=== PATIENT | female | born 2000 | race Caucasian/White ===

== ENCOUNTER 2021-11-05 15:25 | Inpatient (IN) | payer BC ==
[2021-11-05 17:11] LABS: BLOOD UREA NITROGEN,BUN 6 mg/dL (7.0-18.0); CARBON DIOXIDE,CO2 21.2 mmol/L (21.0-32.0); CHLORIDE,CL 104 mmol/L (98-107); GLUCOSE RANDOM 84 mg/dL (74-106); POTASSIUM,K 3.2 mmol/L (3.5-5.1); SODIUM,NA 139 mmol/L (136-145)
[2021-11-05] MEDS ORDERED: Butorphanol 1 MG/ML SDV IVPUSH PRN (17:34)
[2021-11-05] MEDS ORDERED: Ondansetron 4 MG/2 ML SDV IVPUSH PRN (17:34)
[2021-11-05] MEDS ORDERED: Sodium Chloride 0.9% 2.5 ML Syringe FLUSH PRN (17:34)
[2021-11-05] MEDS ORDERED: Tranexamic Acid 1,000 MG in Sodium Chloride 0.9% 100 ML IV PRN (17:34)
[2021-11-05] MEDS ORDERED: Methylergonovine 0.2 MG/1 ML Amp IM PRN (17:34)
[2021-11-05] MEDS ORDERED: Sodium Chloride 0.9% 10 ML Syringe FLUSH PRN (17:34)
[2021-11-05] MEDS ORDERED: Carboprost Tromethamine 250 MCG/1 ML Amp IM PRN (17:34)
[2021-11-05] MEDS ORDERED: Water For Irrigation,Sterile 1,000 ML Container IRR PRN (17:34)
[2021-11-05] MEDS ORDERED: Lidocaine 1% 50 ML MDV INJECT PRN (17:34)
[2021-11-05] MEDS ORDERED: Sodium Chloride 0.9% 20 ML SDV IV PRN (17:34)
[2021-11-05] MEDS ORDERED: Misoprostol 200 MCG Tab PO PRN (17:34)
[2021-11-05] MEDS ORDERED: Acetaminophen 500 MG Tab PO ONE (17:42)
[2021-11-05] MEDS ORDERED: Terbutaline 1 MG/ML SDV SUBCUT PRN (17:42)
[2021-11-05] MEDS ORDERED: Oxytocin/0.9 % Sodium Chloride 30 UNIT/500 ML BAG IV SCH (17:45)
[2021-11-05] MEDS ORDERED: Labetalol 100 MG/20 ML MDV IVPUSH PRN (18:05)
[2021-11-05] MEDS: Lactated Ringers 1,000 ML IV SCH (18:05)
[2021-11-05] MEDS ORDERED: ePHEDrine 50 MG/ML SDV IVPUSH PRN ×2 (18:32)
[2021-11-06] MEDS: Lactated Ringers 1,000 ML IV SCH ×3 (10:14→18:07)
[2021-11-06] MEDS ORDERED: Ropivacaine 100 ML ONE (10:31)
[2021-11-06] MEDS: Ropivacaine 200 MG in Premix Bag 1 BAG EPIDUR SCH ×2 (16:53→23:14)
[2021-11-07] MEDS: Oxytocin/0.9 % Sodium Chloride 30 UNIT/500 ML BAG IV SCH ×2 (00:30→01:16)
[2021-11-07] MEDS ORDERED: Docusate Sodium 100 MG Cap PO PRN (00:43)
[2021-11-07] MEDS ORDERED: Acetaminophen 500 MG Tab PO PRN (00:43)
[2021-11-07] MEDS ORDERED: Lanolin 100% Cream 7 GM Tube TOP PRN (00:43)
[2021-11-07] MEDS ORDERED: Tranexamic Acid 1,000 MG in Sodium Chloride 0.9% 100 ML IV PRN (00:43)
[2021-11-07] MEDS ORDERED: Ibuprofen 400 MG Tab PO PRN (00:43)
[2021-11-07] MEDS ORDERED: Bisacodyl 10 MG Supp RECTAL PRN (00:43)
[2021-11-07] MEDS ORDERED: Oxytocin/0.9 % Sodium Chloride 30 UNIT/500 ML BAG ONE (01:09)
[2021-11-07] MEDS: Benzocaine/Menthol 20%-0.5% Spray 78 GM Cannister TOP PRN ×2 (01:19→15:46)
[2021-11-07] MEDS: Witch Hazel Medicated Pads 40/Jar TOP PRN ×2 (01:20→15:46)
[2021-11-07] MEDS: Ibuprofen 800 MG Tab PO PRN (01:21)
[2021-11-07] MEDS: Prenatal Multivitamin with Calcium/Folic Acid/Iron Tab PO SCH (09:56)
[2021-11-07] MEDS: Acetaminophen 500 MG Tab PO PRN (17:47)
[2021-11-08] MEDS: Ibuprofen 800 MG Tab PO PRN (02:14)
[2021-11-08] MEDS: Prenatal Multivitamin with Calcium/Folic Acid/Iron Tab PO SCH (08:19)
[2021-11-08] MEDS: Acetaminophen 500 MG Tab PO PRN (08:19)
== END 2021-11-08 11:40 | disposition home or self-care (01) | DRG 560 ==
LOC: MW.OBCHECK 15:25 → MW.OB 15:36 → MW.OBCHECK 17:34 → MW.OB 17:34 → OBSVTOIN 11-07 00:20 → MW.OB 11-07 06:25
PROVIDERS: ADMIT Obstetrics & Gynecology; ATTEND Obstetrics & Gynecology
PROC: 10E0XZZ Delivery of Products of Conception, External Approach (ICD-10-PCS; principal; 2021-11-07)
PROC: 3E0P7VZ Introduction of Hormone into Female Reproductive, Via Natural or Artificial Opening (ICD-10-PCS; 2021-11-07)
PROC: 3E033VJ Introduction of Other Hormone into Peripheral Vein, Percutaneous Approach (ICD-10-PCS; 2021-11-07)
PROC: 0KQM0ZZ Repair Perineum Muscle, Open Approach (ICD-10-PCS; 2021-11-07)
PROC: 3E0R3BZ Introduction of Anesthetic Agent into Spinal Canal, Percutaneous Approach (ICD-10-PCS; 2021-11-07)
PROC: 00HU33Z Insertion of Infusion Device into Spinal Canal, Percutaneous Approach (ICD-10-PCS; 2021-11-07)
PROC: 10907ZC Drainage of Amniotic Fluid, Therapeutic from Products of Conception, Via Natural or Artificial Opening (ICD-10-PCS; 2021-11-07)
DX: O13.4 Gestational [pregnancy-induced] hypertension without significant proteinuria, complicating childbirth (principal); Z37.0 Single live birth; O98.52 Other viral diseases complicating childbirth; U07.1 COVID-19; O70.1 Second degree perineal laceration during delivery; Z3A.39 39 weeks gestation of pregnancy
CPT/HCPCS: 36415; 51702; 59025; 59409; 80053; 81003; 82803; 84550; 85014; 85018; 85027; 86592; 86850; 86900; 86901; A9270-GY; J2590; J2795; J7120; U0002

== ENCOUNTER 2022-10-10 10:10 | Emergency (ER) | payer SELFPAY ==
[2022-10-10] MEDS ORDERED: Baclofen 10 MG Tab PO STA (10:41)
[2022-10-10] MEDS ORDERED: Ketorolac 60 MG/2 ML SDV IM STA (10:41)
== END 2022-10-10 12:12 | disposition home or self-care (01) ==
LOC: MW.ED 10:10
DX: M54.41 Lumbago with sciatica, right side (principal); I10 Essential (primary) hypertension; Z88.8 Allergy status to other drugs, medicaments and biological substances
CPT/HCPCS: 72100; 73502; 96372; 99283; A9270; J1885

== ENCOUNTER 2023-12-19 17:06 | Emergency (ER) | payer BC ==
[2023-12-19] MEDS: Sodium Chloride 0.9% 500 ML IV SCH (17:33)
[2023-12-19 17:34] LABS: BASOPHILS ABSOLUTE AUTO 0.06 K/uL (0.00-0.20); BASOPHILS PERCENT AUTO 0.4 % (0.0-1.0); EOSINOPHILS ABSOLUTE AUTO 0.08 K/uL (0.00-0.45); EOSINOPHILS PERCENT AUTO 0.5 % (0.0-6.0); HEMATOCRIT 33.8 % (37.0-47.0); HEMOGLOBIN 11.9 g/dL (12.0-16.0); IMMATURE GRAN ABSOLUTE AUTO 0.09 K/uL (0.00-0.05); IMMATURE GRAN PERCENT AUTO 0.6 % (0.0-0.4); LYMPHOCYTES ABSOLUTE AUTO 1.46 K/uL (1.00-4.80); LYMPHOCYTES PERCENT AUTO 9.9 % (24.0-44.0); MEAN CORPUSCULAR HEMOGLOBIN 30.7 pg (28.0-32.0); MEAN CORPUSCULAR HGB CONC 35.2 g/dL (32.0-36.0); MEAN CORPUSCULAR VOLUME 87.3 fL (83.0-99.0); MEAN PLATELET VOLUME 8.1 fL (9.4-12.3); MONOCYTES ABSOLUTE AUTO 0.83 K/uL (0.00-0.80); MONOCYTES PERCENT AUTO 5.6 % (0.0-8.0); NEUTROPHILS ABSOLUTE AUTO 12.29 K/uL (1.80-7.70); PLATELET COUNT,PLT 252 K/uL (150-400); RED BLOOD CELL COUNT 3.87 M/uL (4.10-5.30); WHITE BLOOD CELL COUNT,WBC 14.81 K/uL (3.9-11.3)
[2023-12-19] MEDS: Lidocaine 4% 1 each Patch TOP ONE (17:34)
[2023-12-19] MEDS: Sodium Chloride 0.9% 2.5 ML Syringe FLUSH PRN (17:34)
[2023-12-19] MEDS: Sodium Chloride 0.9% 10 ML Syringe FLUSH PRN (17:34)
[2023-12-19 17:51] LABS: D-DIMER QUANTITATIVE 1.17 mg/L FEU (0.00-0.50); INR 0.93 (0.86-1.11)
[2023-12-19 18:08] LABS: A/G RATIO 0.6 (0.9-1.6); ALBUMIN 2.4 g/dL (3.4-5.0); BILIRUBIN DIRECT 0.1 mg/dL (0.0-0.5); BILIRUBIN INDIRECT 0.2; BILIRUBIN TOTAL 0.3 mg/dL (0.2-1.0); CALCIUM 8.2 mg/dL (8.5-10.1); CARBON DIOXIDE,CO2 20.1 mmol/L (21.0-32.0); CREATININE 0.4 mg/dL (0.6-1.0); EST CRCL DRUG DOSING (CG) 188.89 mL/min; MAGNESIUM 1.6 mg/dL (1.8-2.4); POTASSIUM,K 3.3 mmol/L (3.5-5.1); PROTEIN TOTAL,TP 6.4 g/dL (6.4-8.2)
[2023-12-19] MEDS: Magnesium Sulfate/Water 2 GM in Premix Bag 1 BAG IV ONE (18:38)
[2023-12-19] MEDS: Lactated Ringers 1,000 ML IV ONE (18:39)
[2023-12-21 07:06] LABS: URINE PROTEIN 7 mg/dL (1-14)
== END 2023-12-19 20:07 | disposition home or self-care (01) ==
LOC: MW.ED 17:06
DX: O99.891 Other specified diseases and conditions complicating pregnancy (principal); R07.9 Chest pain, unspecified; O10.013 Pre-existing essential hypertension complicating pregnancy, third trimester; Z88.8 Allergy status to other drugs, medicaments and biological substances; Z3A.35 35 weeks gestation of pregnancy
CPT/HCPCS: 36415; 80048; 80076; 83615; 83735; 83880; 84484; 85025; 85379; 85610; 85730; 93005; 93970; 96361; 96365; 99285; A9270; J3475; J3490; J7040; J7120; 93010; 99282

== ENCOUNTER 2024-01-04 17:28 | Observation (INO) | payer BC ==
[2024-01-04 17:50] LABS: APPEARANCE,URINE CLEAR; COLOR,URINE YELLOW; GLUCOSE,URINE NEGATIVE (NEGATIVE); KETONES,URINE NEGATIVE (NEGATIVE); LEUKOCYTE ESTERASE,URINE TRACE (NEGATIVE); NITRITE,URINE POSITIVE (NEGATIVE); OCCULT BLOOD,URINE LARGE (NEGATIVE); PROTEIN,URINE 30 mg/dL (NEGATIVE)
[2024-01-04 17:54] LABS: BILIRUBIN,URINE SMALL (NEGATIVE)
[2024-01-04] MEDS ORDERED: Sodium Chloride 0.9% 10 ML Syringe FLUSH PRN (18:23)
[2024-01-04] MEDS ORDERED: Water For Irrigation,Sterile 1,000 ML Container IRR PRN (18:23)
[2024-01-04] MEDS ORDERED: Sodium Chloride 0.9% 2.5 ML Syringe FLUSH PRN (18:23)
[2024-01-04] MEDS ORDERED: Sodium Chloride 0.9% 20 ML SDV IV PRN (18:23)
[2024-01-04] MEDS: Lactated Ringers 1,000 ML IV SCH (18:35)
[2024-01-04 18:50] LABS: HEMATOCRIT 35.3 % (37.0-47.0); HEMOGLOBIN 12.4 g/dL (12.0-16.0); MEAN CORPUSCULAR HEMOGLOBIN 30.2 pg (28.0-32.0); MEAN CORPUSCULAR HGB CONC 35.1 g/dL (32.0-36.0); MEAN CORPUSCULAR VOLUME 85.9 fL (83.0-99.0); MEAN PLATELET VOLUME 8.3 fL (9.4-12.3); PLATELET COUNT,PLT 263 K/uL (150-400); RED BLOOD CELL COUNT 4.11 M/uL (4.10-5.30); WHITE BLOOD CELL COUNT,WBC 16.63 K/uL (3.9-11.3)
[2024-01-04] MEDS: Ampicillin/Sulbactam Na 3 GM in Sodium Chloride 0.9% 100 ML IV SCH (19:21)
== END 2024-01-05 09:02 | disposition home or self-care (01) ==
LOC: MW.OBCHECK 17:28 → MW.OB 17:30 → MW.OBCHECK 18:22 → MW.OB 18:23
PROVIDERS: ADMIT Obstetrics & Gynecology; ATTEND Obstetrics & Gynecology
DX: O32.1XX0 Maternal care for breech presentation, not applicable or unspecified (principal); O23.43 Unspecified infection of urinary tract in pregnancy, third trimester; I10 Essential (primary) hypertension; Z79.82 Long term (current) use of aspirin; Z88.0 Allergy status to penicillin; Z79.899 Other long term (current) drug therapy; Z3A.37 37 weeks gestation of pregnancy
CPT/HCPCS: 36415; 59025; 81003; 85027; 86850; 86900; 86901; 87086; 96365; 96366; 96376; G0378; J0295; J3490; J7120

== ENCOUNTER 2024-01-18 13:03 | Inpatient (IN) | payer BC ==
[2024-01-18] MEDS: Lactated Ringers 1,000 ML IV SCH (13:05)
[2024-01-18] MEDS ORDERED: Water For Irrigation,Sterile 1,000 ML Container IRR PRN (13:37)
[2024-01-18] MEDS ORDERED: Misoprostol 200 MCG Tab PO PRN (13:37)
[2024-01-18] MEDS ORDERED: Sodium Chloride 0.9% 10 ML Syringe FLUSH PRN (13:37)
[2024-01-18] MEDS ORDERED: Tranexamic Acid IN NACL,ISO-OS 1,000 MG in Premix Bag 1 BAG IV PRN (13:37)
[2024-01-18] MEDS ORDERED: Butorphanol 2 MG/ML SDV IVPUSH PRN (13:37)
[2024-01-18] MEDS ORDERED: Lidocaine 1% 50 ML MDV INJECT PRN (13:37)
[2024-01-18] MEDS ORDERED: Methylergonovine 0.2 MG/1 ML Amp IM PRN (13:37)
[2024-01-18] MEDS ORDERED: Sodium Chloride 0.9% 2.5 ML Syringe FLUSH PRN (13:37)
[2024-01-18] MEDS ORDERED: Carboprost Tromethamine 250 MCG/1 mL Vial IM PRN (13:37)
[2024-01-18] MEDS ORDERED: Sodium Chloride 0.9% 20 ML SDV IV PRN (13:37)
[2024-01-18] MEDS ORDERED: Bupivacaine 0.5% 10 ML SDV ONE (13:38)
[2024-01-18] MEDS ORDERED: Oxytocin/0.9 % Sodium Chloride 30 UNIT/500 ML BAG IV SCH (13:45)
[2024-01-18] MEDS ORDERED: Phenylephrine HCl In 0.9% NaCl 1 MG/10 ML Syringe IVPUSH PRN (14:02)
[2024-01-18] MEDS ORDERED: ePHEDrine 50 MG/ML SDV IVPUSH PRN ×2 (14:02)
[2024-01-18] MEDS ORDERED: ePHEDrine 50 MG/ML SDV IM PRN (14:03)
[2024-01-18] MEDS ORDERED: Ropivacaine HCl/PF 400 MG in Premix Bag 1 BAG EPIDUR SCH (14:15)
[2024-01-18] MEDS: Phenylephrine HCl In 0.9% NaCl 1 MG/10 ML Syringe ONE (14:33)
[2024-01-18 14:34] LABS: HEMATOCRIT 33.6 % (37.0-47.0); HEMOGLOBIN 11.6 g/dL (12.0-16.0); MEAN CORPUSCULAR HEMOGLOBIN 30.1 pg (28.0-32.0); MEAN CORPUSCULAR HGB CONC 34.5 g/dL (32.0-36.0); MEAN PLATELET VOLUME 8.7 fL (9.4-12.3); PLATELET COUNT,PLT 251 K/uL (150-400); RED BLOOD CELL COUNT 3.86 M/uL (4.10-5.30); WHITE BLOOD CELL COUNT,WBC 16.19 K/uL (3.9-11.3)
[2024-01-18] MEDS: Ropivacaine HCl/PF 200 ML ONE (14:52)
[2024-01-18] MEDS ORDERED: Terbutaline 1 MG/ML SDV SUBCUT PRN (17:12)
[2024-01-18] MEDS ORDERED: Misoprostol 25 MCG (1/4 of 100 MCG) Tab VAG PRN ×2 (17:12)
[2024-01-18] MEDS: Oxytocin/0.9 % Sodium Chloride 30 UNIT/500 ML BAG IV SCH (17:25)
[2024-01-18] MEDS ORDERED: oxyCODONE 5 MG Tab PO PRN (21:15)
[2024-01-18 21:47] LABS: PH,UMBILICAL ARTERIAL 7.267 (7.18-7.38); PH,UMBILICAL VENOUS 7.342 (7.25-7.45)
[2024-01-18] MEDS: Benzocaine/Menthol 20%-0.5% Spray 78 GM Cannister TOP PRN (23:36)
[2024-01-18] MEDS: Ibuprofen 800 MG Tab PO PRN (23:37)
[2024-01-18] MEDS: Docusate Sodium 100 MG Cap PO PRN (23:37)
[2024-01-18] MEDS: Lanolin 100% Cream 7 GM Tube TOP PRN (23:39)
[2024-01-18] MEDS: Witch Hazel Medicated Pads 40/Jar TOP PRN (23:39)
[2024-01-19 05:54] LABS: HEMATOCRIT 29.7 % (37.0-47.0); HEMOGLOBIN 10.1 g/dL (12.0-16.0)
[2024-01-19] MEDS: Acetaminophen 500 MG Tab PO PRN (07:37)
== END 2024-01-20 11:49 | disposition home or self-care (01) | DRG 560 ==
LOC: MW.OBCHECK 13:03 → MW.OB 13:04 → MW.OBCHECK 20:00 → OBSVTOIN 20:53 → MW.OB 01-19 00:59
PROVIDERS: ADMIT Obstetrics & Gynecology; ATTEND Obstetrics & Gynecology
PROC: 10E0XZZ Delivery of Products of Conception, External Approach (ICD-10-PCS; principal; 2024-01-18)
PROC: 0HQ9XZZ Repair Perineum Skin, External Approach (ICD-10-PCS; 2024-01-18)
PROC: 3E0R3BZ Introduction of Anesthetic Agent into Spinal Canal, Percutaneous Approach (ICD-10-PCS; 2024-01-18)
PROC: 00HU33Z Insertion of Infusion Device into Spinal Canal, Percutaneous Approach (ICD-10-PCS; 2024-01-18)
DX: O70.0 First degree perineal laceration during delivery (principal); Z3A.39 39 weeks gestation of pregnancy; Z37.0 Single live birth; Z88.8 Allergy status to other drugs, medicaments and biological substances
CPT/HCPCS: 36415; 51702; 59025; 59409; 82803; 85014; 85018; 85027; 86592; 86850; 86900; 86901; A9270-GY; J0665; J2371; J2590; J2795; J7120

== ENCOUNTER 2024-10-20 11:02 | Emergency (ER) | payer BC ==
[2024-10-20 12:01] LABS: BASOPHILS ABSOLUTE AUTO 0.05 K/uL (0.00-0.20); BASOPHILS PERCENT AUTO 0.9 % (0.0-1.0); EOSINOPHILS ABSOLUTE AUTO 0.13 K/uL (0.00-0.45); EOSINOPHILS PERCENT AUTO 2.3 % (0.0-6.0); HEMATOCRIT 35.7 % (37.0-47.0); HEMOGLOBIN 12.4 g/dL (12.0-16.0); IMMATURE GRAN ABSOLUTE AUTO 0.04 K/uL (0.00-0.05); IMMATURE GRAN PERCENT AUTO 0.7 % (0.0-0.4); LYMPHOCYTES ABSOLUTE AUTO 1.01 K/uL (1.00-4.80); LYMPHOCYTES PERCENT AUTO 17.6 % (24.0-44.0); MEAN CORPUSCULAR HEMOGLOBIN 29.4 pg (28.0-32.0); MEAN CORPUSCULAR HGB CONC 34.7 g/dL (32.0-36.0); MEAN CORPUSCULAR VOLUME 84.6 fL (83.0-99.0); MEAN PLATELET VOLUME 8.3 fL (9.4-12.3); MONOCYTES ABSOLUTE AUTO 0.46 K/uL (0.00-0.80); NEUTROPHILS ABSOLUTE AUTO 4.06 K/uL (1.80-7.70); NEUTROPHILS PERCENT AUTO 70.5 % (41.0-71.0); PLATELET COUNT,PLT 354 K/uL (150-400); RED BLOOD CELL COUNT 4.22 M/uL (4.10-5.30); WHITE BLOOD CELL COUNT,WBC 5.75 K/uL (3.9-11.3)
[2024-10-20 12:36] LABS: ALBUMIN 3.6 g/dL (3.4-5.0); BILIRUBIN TOTAL 0.3 mg/dL (0.2-1.0); C-REACTIVE PROTEIN 1.47 mg/dL (<0.3); CALCIUM 8.3 mg/dL (8.5-10.1); CARBON DIOXIDE,CO2 27.2 mmol/L (21.0-32.0); CREATININE 0.7 mg/dL (0.6-1.0); EST CRCL DRUG DOSING (CG) 107.01 mL/min; POTASSIUM,K 3.7 mmol/L (3.5-5.1); PROTEIN TOTAL,TP 7.3 g/dL (6.4-8.2)
[2024-10-20 13:08] LABS: APPEARANCE,URINE CLEAR; BILIRUBIN,URINE NEGATIVE (NEGATIVE); COLOR,URINE YELLOW; GLUCOSE,URINE NEGATIVE (NEGATIVE); KETONES,URINE TRACE mg/dL (NEGATIVE); LEUKOCYTE ESTERASE,URINE NEGATIVE (NEGATIVE); NITRITE,URINE NEGATIVE (NEGATIVE); OCCULT BLOOD,URINE NEGATIVE (NEGATIVE); PROTEIN,URINE TRACE mg/dL (NEGATIVE)
[2024-10-20 13:15] LABS: BACTERIA,URINE FEW (NEGATIVE); MUCUS,URINE MODERATE (NONE-MOD); RBC,URINE 0-2 (0-2/HPF); SQUAMOUS EPITHELIAL CELLS,UR RARE; WBC,URINE 0-2 (0-5/HPF)
[2024-10-20] MEDS: Iopamidol 755 MG/ML 500 ML Multipack Bottle IVPUSH STA (14:27)
== END 2024-10-20 15:00 | disposition home or self-care (01) ==
LOC: MW.ED 11:02
DX: M25.532 Pain in left wrist (principal); M25.531 Pain in right wrist; M25.572 Pain in left ankle and joints of left foot; M25.571 Pain in right ankle and joints of right foot; I10 Essential (primary) hypertension; E66.9 Obesity, unspecified; Z79.899 Other long term (current) drug therapy; Z88.8 Allergy status to other drugs, medicaments and biological substances; Z75.8 Other problems related to medical facilities and other health care; Z68.26 Body mass index [BMI] 26.0-26.9, adult
CPT/HCPCS: 36415; 71275; 80053; 81001; 81025; 83880; 84703; 85025; 85379; 85652; 86140; 99284; Q9967; 99283